=== PATIENT | male | born 1960 | race Caucasian/White ===

== ENCOUNTER 2020-09-11 14:55 | Emergency (ER) | payer OTHER ==
[~2020-09-11] VITALS: Ht 177.8 cm; Wt 69.0 kg
[2020-09-11] MEDS ORDERED: PROAIR HFA8.5 GM INH ×2 (17:08→17:11)
[2020-09-11] MEDS ORDERED: PREDNISONE 20 M20 MG PO ×2 (17:08→17:11)
[2020-09-11] MEDS ORDERED: PROMETH-CODEIN 65 ML PO ×2 (17:08→17:11)
[2020-09-11] MEDS ORDERED: ZPAK PO ×2 (17:08→17:11)
== END 2020-09-11 17:45 | disposition home or self-care (01) ==
LOC: ER 14:55
DX: R05 Cough (principal); I10 Essential (primary) hypertension; E11.9 Type 2 diabetes mellitus without complications; E78.5 Hyperlipidemia, unspecified; Z20.828 Contact with and (suspected) exposure to other viral communicable diseases